=== PATIENT | female | born 1945 | race Asian ===

== ENCOUNTER → 2017-03-02 | Outpatient (CLI) | payer MEDICARE, MEDICAID ==
[~2017-03-02] MED LIST: ACET-2902 PO; AMLO-511 PO; BISA10S PR; CARV6 PO; CLOP75 PO; HEPA500017 SQ; ISOS60TA4 PO; KDUR20 PO; LEVO25VI4 IV; LORA10TA7 PO; MELO-273 PO; PANT40TA25 PO; PRAV40 PO; PRED10 PO; VALS80TA2 PO
== END | disposition home or self-care (01) ==
LOC: RADMN 12:28
PROVIDERS: ATTEND Hospitalist
DX: I67.2 Cerebral atherosclerosis (principal); G93.89 Other specified disorders of brain; J32.3 Chronic sphenoidal sinusitis; R90.82 White matter disease, unspecified; Z96.1 Presence of intraocular lens
CPT/HCPCS: 70450

== ENCOUNTER → 2017-04-20 | Outpatient (CLI) | payer MEDICARE, MEDICAID ==
[~2017-04-20] VITALS: Ht 157.5 cm; Wt 49.5 kg
[~2017-04-20] MED LIST changes: +APIX2.5T PO; +ATOR40TA28 PO; +FURO20 PO; -HEPA500017 SQ; -LEVO25VI4 IV; +LOSA50TA37 PO; +MELO-107 PO; -MELO-273 PO; -PRAV40 PO; +PRAV40TA4 PO; +RANO500T3 PO; +TEMA15CA PO; +VALS40TA4 PO; -VALS80TA2 PO
[2017-04-20 11:33] VITALS: BP 111/50
== END | disposition home or self-care (01) ==
LOC: SRCNTR 11:11
PROVIDERS: ATTEND Hospitalist
DX: I11.0 Hypertensive heart disease with heart failure (principal); I50.9 Heart failure, unspecified; E78.5 Hyperlipidemia, unspecified; I25.10 Atherosclerotic heart disease of native coronary artery without angina pectoris; I48.91 Unspecified atrial fibrillation; M32.9 Systemic lupus erythematosus, unspecified; Z79.01 Long term (current) use of anticoagulants; Z79.82 Long term (current) use of aspirin; Z95.1 Presence of aortocoronary bypass graft
CPT/HCPCS: G0463

== ENCOUNTER → 2017-05-01 | Outpatient (CLI) | payer MEDICARE, MEDICAID ==
[~2017-05-01] VITALS: Ht 152.4 cm; Wt 50.0 kg
[2017-05-01 14:08] VITALS: BP 126/77
== END | disposition home or self-care (01) ==
LOC: SRCNTR 13:49
PROVIDERS: ATTEND Internal Medicine Cardiovascular Disease
DX: I11.0 Hypertensive heart disease with heart failure (principal); I50.9 Heart failure, unspecified; I25.10 Atherosclerotic heart disease of native coronary artery without angina pectoris; E78.5 Hyperlipidemia, unspecified; I25.5 Ischemic cardiomyopathy; I34.0 Nonrheumatic mitral (valve) insufficiency; I48.2 Chronic atrial fibrillation; M32.9 Systemic lupus erythematosus, unspecified; Z79.01 Long term (current) use of anticoagulants; Z95.1 Presence of aortocoronary bypass graft
CPT/HCPCS: 93005; G0463

== ENCOUNTER → 2017-05-31 | Outpatient (CLI) | payer MEDICARE, MEDICAID ==
[~2017-05-31] VITALS: Ht 152.4 cm; Wt 48.5 kg
[~2017-05-31] MED LIST changes: -ACET-2902 PO; -BISA10S PR; -CLOP75 PO; -KDUR20 PO; -LORA10TA7 PO; -MELO-107 PO; -PANT40TA25 PO; -PRAV40TA4 PO; -PRED10 PO
[2017-05-31 14:54] VITALS: BP 106/56
== END | disposition home or self-care (01) ==
LOC: SRCNTR 14:20
PROVIDERS: ATTEND Internal Medicine Cardiovascular Disease
DX: I10 Essential (primary) hypertension (principal); E78.5 Hyperlipidemia, unspecified; I25.10 Atherosclerotic heart disease of native coronary artery without angina pectoris; I48.2 Chronic atrial fibrillation; I42.9 Cardiomyopathy, unspecified; M32.9 Systemic lupus erythematosus, unspecified; Z79.01 Long term (current) use of anticoagulants; Z95.1 Presence of aortocoronary bypass graft
CPT/HCPCS: G0463

== ENCOUNTER → 2017-06-25 | Outpatient (CLI) | payer MEDICARE, MEDICAID ==
[~2017-06-25] VITALS: Ht 152.4 cm; Wt 49.5 kg
[~2017-06-25] MED LIST changes: -VALS40TA4 PO
[2017-06-25 09:56] VITALS: BP 122/74
== END | disposition home or self-care (01) ==
LOC: SRCNTR 09:46
PROVIDERS: ATTEND Internal Medicine Cardiovascular Disease
DX: I10 Essential (primary) hypertension (principal); E78.5 Hyperlipidemia, unspecified; I25.10 Atherosclerotic heart disease of native coronary artery without angina pectoris; I48.2 Chronic atrial fibrillation; M32.9 Systemic lupus erythematosus, unspecified; I25.5 Ischemic cardiomyopathy; Z95.1 Presence of aortocoronary bypass graft; Z79.01 Long term (current) use of anticoagulants
CPT/HCPCS: G0463

== ENCOUNTER 2017-08-02 16:38 | Emergency (ER) | payer MEDICARE, MEDICAID ==
[~2017-08-02] VITALS: Ht 157.5 cm; Wt 51.8 kg
[2017-08-02] MEDS ORDERED: PERTUSS(ACELL),DIPH,TET VAC/PF 0.5 ML VIAL IM ONE (19:00)
[2017-08-02] MEDS ORDERED: BUPIVACAINE HCL/PF 0.25% 10 ML VIAL INJ ONE (19:00)
[2017-08-02] MEDS ORDERED: HYDROCODONE/ACETAMINOPHEN 5-325 MG TABLET PO ONE (19:00)
[2017-08-02] MEDS ORDERED: LIDOCAINE HCL 2% 5 ML JELLY TP ONE (19:00)
[2017-08-02] MEDS ORDERED: LIDOCAINE HCL 1% 10 ML VIAL ONE ×2 (19:50→19:55)
[2017-08-02] MEDS ORDERED: LIDOCAINE HCL 2%/EPI 1:200,000/PF 20 ML VIAL INJ ONE (20:00)
[2017-08-02 20:45] VITALS: BP 132/68
[2017-08-02] MEDS ORDERED: CEPHALEXIN MONOHYDRATE 500 MG CAPSULE PO ONE (20:45)
== END 2017-08-16 16:37 | disposition home or self-care (01) ==
LOC: EMS 16:40
DX: S81.812A Laceration without foreign body, left lower leg, initial encounter (principal); I10 Essential (primary) hypertension; I48.91 Unspecified atrial fibrillation; E78.00 Pure hypercholesterolemia, unspecified; M32.9 Systemic lupus erythematosus, unspecified; Z79.899 Other long term (current) drug therapy; W10.9XXA Fall (on) (from) unspecified stairs and steps, initial encounter; Y93.89 Activity, other specified; Y92.89 Other specified places as the place of occurrence of the external cause; Y99.8 Other external cause status
CPT/HCPCS: 12005; 99284; J3490 ×2

== ENCOUNTER 2017-08-16 15:01 | Emergency (ER) | payer MEDICARE, MEDICAID ==
[~2017-08-16] VITALS: Ht 157.5 cm; Wt 64.5 kg
[2017-08-16] MEDS ORDERED: BACITRACIN 0.9 GM PACKET OINTMENT TP ONE ×2 (16:55→19:00)
[2017-08-16 19:39] VITALS: BP 135/77
== END 2017-08-16 19:43 | disposition home or self-care (01) ==
LOC: EMS 15:05
DX: Z48.02 Encounter for removal of sutures (principal); L03.116 Cellulitis of left lower limb; I48.91 Unspecified atrial fibrillation; E78.00 Pure hypercholesterolemia, unspecified; I10 Essential (primary) hypertension; Z86.73 Personal history of transient ischemic attack (TIA), and cerebral infarction without residual deficits
CPT/HCPCS: 99283

== ENCOUNTER 2017-09-18 11:34 | Emergency (ER) | payer OTHER, MEDICAID ==
[~2017-09-18] VITALS: Ht 154.9 cm; Wt 48.2 kg
[2017-09-18 12:40] VITALS: BP 122/71
== END 2017-09-18 14:10 | disposition home or self-care (01) ==
LOC: EMS 11:36
DX: B35.3 Tinea pedis (principal); I48.91 Unspecified atrial fibrillation; E78.00 Pure hypercholesterolemia, unspecified; I10 Essential (primary) hypertension; Z86.73 Personal history of transient ischemic attack (TIA), and cerebral infarction without residual deficits
CPT/HCPCS: 99283

== ENCOUNTER 2017-12-21 13:37 | Emergency (ER) | payer OTHER, MEDICAID ==
[~2017-12-21] VITALS: Ht 154.9 cm; Wt 45.9 kg
[2017-12-21] MEDS ORDERED: DIGO-44 PO (13:51)
[2017-12-21] MEDS ORDERED: ACETAMINOPHEN/CODEINE 300-30 MG TABLET PO ONE (16:45)
[2017-12-21 21:24] LABS: BASOPHILS % (AUTO) 0.3 % (0.0-2.0); EOSINOPHILS % (AUTO) 0.4 % (1.0-6.0); HEMATOCRIT 36.6 % (36-46); HEMOGLOBIN 12.5 g/dL (12.0-16.0); LYMPHOCYTES # (AUTO) 2.2 K/uL (1.0-4.8); LYMPHOCYTES % (AUTO) 34.8 % (22.0-44.0); MEAN CORPUSCULAR HEMOGLOBIN 31.4 pg (26.0-34.0); MEAN CORPUSCULAR HGB CONC 34.3 G/dL (31.0-37.0); MEAN CORPUSCULAR VOLUME 92 fL (80-100); MONOCYTES # (AUTO) 0.8 K/uL (0.1-1.0); MONOCYTES % (AUTO) 12.1 % (2.0-9.0); NEUTROPHILS # (AUTO) 3.3 K/uL (1.8-7.7); NEUTROPHILS % (AUTO) 52.4 % (40.0-70.0); PLATELET COUNT (AUTO) 201 K/uL (150-450); RED BLOOD CELL COUNT(AUTO) 3.99 MIL/uL (4.00-5.20); RED CELL DISTRIBUTION WIDTH 16.8 % (11.5-14.5)
[2017-12-21 21:32] LABS: ANION GAP 4 mmol/L (8-16); CALCIUM, TOTAL 8.7 mg/dL (8.8-10.5); CARBON DIOXIDE 32 mmol/L (22-29); CHLORIDE 106 mmol/L (98-107); CREATININE 0.65 mg/dL (0.60-1.30); GLOMERULAR FILTR. RATE CALC > 60 mL/min (>60); GLUCOSE,RANDOM 137 mg/dL (70-110); POTASSIUM 3.7 mmol/L (3.5-5.1); SODIUM SERUM 142 mmol/L (136-145); UREA NITROGEN, BLOOD 10 mg/dL (7-18)
[2017-12-21 21:38] LABS: ALANINE AMINOTRANSFERASE 17 U/L (12-78); ALKALINE PHOSPHATASE 82 U/L (46-116); ASPARTATE AMINOTRANSFERASE 18 U/L (15-37); TOTAL PROTEIN, SERUM 7.1 g/dL (6.4-8.2)
[2017-12-21 23:35] LABS: APPEARANCE,URINE CLEAR (CLEAR); BILIRUBIN,URINE NEGATIVE (NEGATIVE); GLUCOSE, URINE (UA) NEGATIVE (NEGATIVE); KETONES,URINE NEGATIVE (NEGATIVE); LEUKOCYTE ESTERASE ,URINE NEGATIVE (NEGATIVE); NITRATE,URINE NEGATIVE (NEGATIVE); OCCULT BLOOD,URINE TRACE (NEGATIVE); PROTEIN,URINE NEGATIVE (NEGATIVE)
[2017-12-21 23:55] VITALS: BP 155/84
[2017-12-22] LABS: RBC,URINE 0-2 /HPF (0-2)
[2017-12-22 00:01] LABS: BACTERIA,URINE None Seen /HPF (None Seen)
[2017-12-22 00:02] LABS: SQUAMOUS EPITHELIAL CELL,UR Rare /LPF (None Seen)
== END 2017-12-22 02:06 | disposition short-term general hospital (02) ==
LOC: EMS 13:38
DX: M54.5 Low back pain (principal); R53.1 Weakness; E78.00 Pure hypercholesterolemia, unspecified; I10 Essential (primary) hypertension; I48.91 Unspecified atrial fibrillation; W01.198A Fall on same level from slipping, tripping and stumbling with subsequent striking against other object, initial encounter; Y93.89 Activity, other specified; Y92.89 Other specified places as the place of occurrence of the external cause; Y99.8 Other external cause status
CPT/HCPCS: 72131; 73503; 93005; 99285

== ENCOUNTER 2018-01-12 14:24 | Emergency (ER) | payer OTHER, MEDICAID ==
[~2018-01-12] VITALS: Ht 152.4 cm; Wt 45.5 kg
[~2018-01-12 14:24] MED LIST changes: -AMLO-511 PO; -APIX2.5T PO; +DIGO-44 PO; -RANO500T3 PO
[2018-01-12 15:07] LABS: BASOPHILS % (AUTO) 0.2 % (0.0-2.0); EOSINOPHILS % (AUTO) 0.1 % (1.0-6.0); HEMOGLOBIN 15.4 g/dL (12.0-16.0); LYMPHOCYTES # (AUTO) 1.2 K/uL (1.0-4.8); LYMPHOCYTES % (AUTO) 13.4 % (22.0-44.0); MEAN CORPUSCULAR HEMOGLOBIN 31.1 pg (26.0-34.0); MEAN CORPUSCULAR HGB CONC 33.4 G/dL (31.0-37.0); MEAN CORPUSCULAR VOLUME 93 fL (80-100); MONOCYTES # (AUTO) 0.6 K/uL (0.1-1.0); MONOCYTES % (AUTO) 6.1 % (2.0-9.0); NEUTROPHILS # (AUTO) 7.5 K/uL (1.8-7.7); NEUTROPHILS % (AUTO) 80.2 % (40.0-70.0); PLATELET COUNT (AUTO) 259 K/uL (150-450); RED BLOOD CELL COUNT(AUTO) 4.95 MIL/uL (4.00-5.20); RED CELL DISTRIBUTION WIDTH 18.1 % (11.5-14.5)
[2018-01-12 15:23] LABS: ANION GAP 5 mmol/L (8-16); CALCIUM, TOTAL 8.3 mg/dL (8.8-10.5); CARBON DIOXIDE 30 mmol/L (22-29); CHLORIDE 103 mmol/L (98-107); CREATININE 0.83 mg/dL (0.60-1.30); GLOMERULAR FILTR. RATE CALC > 60 mL/min (>60); GLUCOSE,RANDOM 125 mg/dL (70-110); POTASSIUM 4.2 mmol/L (3.5-5.1); SODIUM SERUM 138 mmol/L (136-145); UREA NITROGEN, BLOOD 26 mg/dL (7-18)
[2018-01-12 15:29] LABS: ALANINE AMINOTRANSFERASE 39 U/L (12-78); ALBUMIN 3.5 g/dL (3.4-5.0); ALKALINE PHOSPHATASE 94 U/L (46-116); ASPARTATE AMINOTRANSFERASE 25 U/L (15-37); BILIRUBIN,TOTAL 0.8 mg/dL (0.1-1.0); LIPASE 498 U/L (73-393)
[2018-01-12] MEDS ORDERED: ASPIRIN 325 MG TABLET PO ONE (15:45)
[2018-01-12 16:17] LABS: DIGOXIN 0.37 ng/mL (0.90-2.00)
[2018-01-12] MEDS ORDERED: NITROGLYCERIN 2% (1 GM=INCH) PACKET TP ONE (18:15)
[2018-01-12 19:35] VITALS: BP 158/61
== END 2018-01-12 19:57 | disposition short-term general hospital (02) ==
LOC: EMS 14:25
DX: R07.89 Other chest pain (principal); R94.31 Abnormal electrocardiogram [ECG] [EKG]; I48.91 Unspecified atrial fibrillation; M25.561 Pain in right knee; M25.562 Pain in left knee; G89.29 Other chronic pain; I10 Essential (primary) hypertension; E78.00 Pure hypercholesterolemia, unspecified
CPT/HCPCS: 70450; 93005; 99285